=== PATIENT | male | born 1975 | race Caucasian/White ===

== ENCOUNTER 2021-04-14 10:51 | Emergency (ER) | payer BC, SELFPAY ==
--- NOTE | ~2021-04-14 | XR_ITS ---
EXAMINATION: XR chest 2V DATE: 04/14/2021 11:34 INDICATION: Cough, COVID positive TECHNIQUE: PA and lateral views of the chest are obtained. COMPARISON: None available FINDINGS: There are airspace opacities in the left lower lobe. There is no pleural effusion or pneumo thorax. The cardiomediastinal silhouette is normal. The visualized bones and soft tissues are unremar kable. IMPRESSION: 1. Left lower lobe airspace opacity, likely pneumonia. Recommend followup radiographs in 10-14 days a fter appropriate therapy to evaluate for improvement/resolution. Reviewed, dictated and finalized at location B. IMPRESSION: 1. Left lower lobe airspace opacity, likely pneumonia. Recommend followup radio graphs in 10-14 days after appropriate therapy to evaluate for improvement/reso lution.
[2021-04-14 11:20] VITALS: BP 130/77; PULSE 72; RESP 20; TEMP 37; O2SAT 97
--- NOTE | 2021-04-14 12:07 | ED.URI ---
HPI - URI/Sore Throat General Chief Complaint: Upper Respiratory Infection Stated Complaint: Cough, Shortness of breathe Source: patient and RN notes reviewed Mode of arrival: ambulatory Limitations: no limitations History of Present Illness HPI Narrative: This is a 45-year-old male who presented to urgent care with complaints of chronic cough shortness of breath and generalized fatigue. According to patient and when he returned back he tested positive for Covid. Patient notes that approximately 2 Fridays and Saturdays ago he started to feel chest congestion irritation in his throat, chronic coughing, fatigue patient did take Robitussin at home with no relief. Patient's chest x-ray indicated left lower lobe pneumonia he also noted that he took a friend's Z-Toni at home which was approximately 1-year-old. I did start patient on Levaquin and instructed him that if his symptoms do not resolve he will need to go to his primary care physician or emergency department. I also recommended the patient do a repeat chest x-ray in 10 to 14 days to ensure that the antibiotics are effective. He does complain of shortness of breath he will be given albuterol for that. The patient denies , CP, palpitation, extremity numbness, lightheadedness, dizziness, constipation, diarrhea, chills, or fever. Related Data Allergies Allergy/AdvReac Type Severity Reaction Status Date / Time No Known Allergies Allergy Verified 04/14/21 11:13 Review of Systems Review of Systems: Narrative: A 14 organ system Review of Systems was performed and pertinent positives included in the HPI, otherwise remaining ROS is negative. All systems reviewed & are unremarkable except as noted in HPI and below PMFSH Family History Family History (Updated 04/14/21 @ 12:08 by ODALYS Daly-C) Other Family history non-contributory Exam Narrative: Exam Narrative: GENERAL: This is a well-nourished, well-developed patient, in no apparent distress. HEAD: normocephalic, atraumatic. EYES: PERRL. Sclera clear/white. Vision is grossly intact. EARS: External ears normal, auditory canals clear and without drainage, TMs normal without perforation. Hearing grossly intact. NOSE: External nose normal with no obvious nasal discharge, nares without redness, no rhinorrhea. THROAT: Mucous membranes moist, posterior pharynx clear. NECK: Neck supple, non-tender without lymphadenopathy, masses or thyromegaly. CARDIOVASCULAR: Regular rate and rhythm without murmurs, gallops, or rubs. RESPIRATORY: Left lower lobe diminished with wheezing to his upper left lobe GASTROINTESTINAL: Abdomen soft, non-tender, nondistended. Bowel sounds are active. No hepato-splenomegaly, or palpable masses. No guarding. SKIN: warm, intact with no suspicious lesions or rash, good texture and turgor. NEURO: awake, alert, and oriented to person, place and time. There were no obvious focal neurologic abnormalities. Steady gait EXTREMITIES: Normal range of motion. No edema. No calf tenderness. Negative Homans sign bilaterally. BACK: Nontender without deformity or crepitance. No flank tenderness. Course Course Emergency Course: Patient will discharge home with levofloxacin and Tessalon Perles with albuterol. Vital Signs Vital signs: Vital Signs Temperature 98.6 F 04/14/21 11:20 Pulse Rate 72 04/14/21 11:20 Respiratory Rate 20 04/14/21 11:20 Blood Pressure 130/77 04/14/21 11:20 Pulse Oximetry 97 04/14/21 11:20 Temperature 98.6 F 04/14/21 11:20 Pulse Rate 72 04/14/21 11:20 Respiratory Rate 20 04/14/21 11:20 Blood Pressure 130/77 04/14/21 11:20 Pulse Oximetry 97 04/14/21 11:20 MDM - URI/Sore Throat Differential Diagnosis Differential diagnosis: Likely upper respiratory infection, pharyngitis and other (Pneumonia) Imaging Data Attestation: I personally reviewed and interpreted this imaging study as follows: My impression: Left lower lobe pneumonia Radiologist's impression: Left low
== END 2021-04-14 12:23 | disposition home or self-care (01) ==
PROVIDERS: Emergency Provider Nurse Practitioner
DX: J18.9 Pneumonia, unspecified organism (principal)
CPT/HCPCS: 71046; 99213; G0463